=== PATIENT | female | born 1950 | race Caucasian/White ===

== ENCOUNTER 2019-08-18 07:56 | Outpatient (CLI) | payer MEDICARE, OTHER, SELFPAY ==
--- NOTE | 2019-08-18 08:06 | US_ITS ---
WS: [id number] THYROID ULTRASOUND REASON FOR EXAM: GOITER, NONTOXIC MULTINODULAR TECHNIQUE: Grayscale and Doppler ultrasound examination of the thyroid gland. FINDINGS: RIGHT: Right thyroid gland measures 5.0 cm x 1.5 cm x 1.6 cm. Right thyroid volume equals 6.4 ccm3. Within t he mid right lobe is a cystic measures 9.29 cm. There is a complex adenoma seen measures 1.21 x 5.73 cm. This is noted in the right lobe. In the righ t lateral lobe is a lesion measured 9.06 mm this is appears to be a well encapsulated adenoma. LEFT: Left thyroid gland measures 4.2 cm x 1.1 cm x 1.3 cm. Left thyroid volume equals 3.1 ccm3. Multiple c yst in the left lobe are seen. Largest measured 0.37 x 0.19 x 0.33 cm. Thyroid isthmus: 0.3 mm. US/US thyroid [id number] IMPRESSION: The right lobe shows multiple prominent cyst in the region no 1 cm in size as w ell as adenomas and which are well encapsulated. The left lobe shows a benign cyst all small in size. No evidence of malignant changes identified. We recommend follow-up study made in the right lobe and 6 months.
== END 2019-08-18 07:57 | disposition home or self-care (01) ==
LOC: US 08:02
PROVIDERS: Family Provider Internal Medicine; PCP Internal Medicine; Visit Provider Internal Medicine
DX: E04.2 Nontoxic multinodular goiter (principal)
CPT/HCPCS: 76536

== ENCOUNTER 2019-09-16 10:50 | Outpatient (CLI) | payer MEDICARE, OTHER, SELFPAY ==
--- NOTE | 2019-09-16 11:06 | MM_ITS ---
WS: [id number] BILATERAL DIGITAL SCREENING MAMMOGRAPHY WITH CAD CLINICAL INFORMATION: SCREENING HISTORY: Screening mammogram. No current complaints. COMPARISON: July 29, 2018, October 31, 2017, June 18, 2017 TECHNIQUE: Bilateral CC and MLO views. FINDINGS: The breasts are composed of heterogeneous fibroglandular density tissue, which can limit the detectio n of small underlying mass lesions. No suspicious mass, asymmetry, calcifications, or architectural d istortion. No evidence of malignancy. MM/[id number] IMPRESSION: BI-RADS: 1-Negative FOLLOW UP: 1 Year Follow-up Recommend return to annual screening mammography.
== END 2019-09-16 10:51 | disposition home or self-care (01) ==
LOC: RADSHAW 10:54
PROVIDERS: Family Provider Internal Medicine; PCP Internal Medicine; Visit Provider Internal Medicine
DX: Z12.31 Encounter for screening mammogram for malignant neoplasm of breast (principal)
CPT/HCPCS: 77067

== ENCOUNTER → 2019-10-20 08:39 | Outpatient (BNVA) | payer MEDICARE, OTHER, SELFPAY | PROVIDERS: Family Provider Internal Medicine; PCP Internal Medicine; Visit Provider Specialist | DX: G43.119 Migraine with aura, intractable, without status migrainosus (principal) | CPT/HCPCS: 99213 ==

== ENCOUNTER 2019-11-01 12:57 | Outpatient (CLI) | payer MEDICARE, OTHER, SELFPAY ==
--- NOTE | 2019-11-01 13:02 | MR_ITS ---
WS: [id number] MRA ANGIOGRAPHY [place] HISTORY: ANEURYSM COMPARISON: 02/17/2018 and 12/10/2017 TECHNIQUE: 3-D MR angiography is performed of the [place]. All images are reviewed including source images. Distal vertebral and basilar arteries are intact with no significant stenosis or plaque. Posterior ce rebral arteries are normal course and caliber. Posterior communicating arteries are both patent. Unchanged aneurysm from the LEFT cavernous portion of the ICA. Aneurysm extends laterally and superio rly from the distal ICA measuring 5 mm. Stable over multiple prior years. No new aneurysm. RIGHT intracranial carotid artery is normal. Middle cerebral and anterior cerebral arteries are brock l caliber with no additional aneurysms. No aneurysms along the anterior or posterior communicating ar teries. MR/MR angio head wo con [id number] IMPRESSION: 1. 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 2. No additional aneurysms or occlusions.
--- NOTE | 2019-11-01 13:02 | MR_ITS ---
WS: [id number] MRI BRAIN WITHOUT CONTRAST HISTORY: ANEURYSM COMPARISON: 02/17/2015 TECHNIQUE: Diffusion imaging, multiplanar T1, T2 and FLAIR imaging obtained. No evidence for acute infarct or hemorrhage. Stallworth-white matter differentiation is normal. Very mild atrophy and mild chronic microvascular ischemic disease. No evidence for acute hemorrhage. Ventricles and extra-axial spaces are normal. No inferior displacement of cerebellar tonsils. The sella turcica and pituitary gland are unremarkabl e. Posterior fossa is also unremarkable. No signal abnormality within the dural venous sinuses. Patient has a known distal LEFT ICA aneurysm w hich is better visualized on the angiogram portion of this examination. Paranasal sinuses: Clear. Mastoid air cells: Normal. Calvarium and scalp: Intact. MR/MR head wo con* [id number] IMPRESSION: 1. No acute intracranial hemorrhage or edema. 2. Mild atrophy and minimal chronic microvascular ischemic disease.
== END 2019-11-01 12:58 | disposition home or self-care (01) ==
LOC: RADWPI 13:00
PROVIDERS: Family Provider Internal Medicine; PCP Internal Medicine; Visit Provider Specialist
DX: I67.1 Cerebral aneurysm, nonruptured (principal)
CPT/HCPCS: 70544; 70551

== ENCOUNTER → 2019-11-02 07:50 | Outpatient (BNVA) | payer MEDICARE, OTHER, SELFPAY | PROVIDERS: Family Provider Internal Medicine; PCP Internal Medicine; Visit Provider Specialist | DX: G43.119 Migraine with aura, intractable, without status migrainosus (principal); R29.90 Unspecified symptoms and signs involving the nervous system; R47.01 Aphasia | CPT/HCPCS: 95816 ==

== ENCOUNTER 2020-03-03 07:58 | Outpatient (CLI) | payer MEDICARE, OTHER, SELFPAY ==
--- NOTE | 2020-03-03 08:11 | US_ITS ---
WS: [id number] ULTRASOUND THYROID TECHNIQUE: Ultrasound of the thyroid. CLINICAL INFORMATION: GOITER,NONTOXIC MULTINODULAR COMPARISON: August 18, 2019 FINDINGS: Thyroid: Again seen is slightly heterogeneous thyroid echotexture with multiple hypoechoic and comple x cystic nodules mainly subcentimeter in size. Right thyroid lobe: 4.0 cm x 1.4 cm x 1.6 cm Complex cystic lesion right thyroid measuring 1.4 1.0 x 1.0 cm unchanged from previous. Additional hy poechoic complex lesion measuring 1.2 x 0.4 x 0.8 cm in the inferior thyroid unchanged. Additional smaller subcentimeter cystic and complex cystic lesions compatible with small cysts and co lloid cysts. Left thyroid lobe: 3.9 cm x 1.2 cm x 1.4 cm. Several stable tiny subcentimeter cystic lesions compatible with incidental colloid cysts. Isthmus: 0.3 mm. Cervical lymphadenopathy: None. US/US thyroid [id number] IMPRESSION: 1. No significant interval changes since August 18, 2019. 2. Multiple hypoechoic and complex cystic lesions right greater than left thyr oid lobes. 3. Largest complex cystic lesion in the right mid thyroid measures 1.4 x 1.0 x 1.0 cm stable from previous. Recommend 12 month follow-up. 4. Additional subcentimeter hypoechoic lesions in both lobes compatible with s mall cyst and colloid cysts.
== END 2020-03-03 07:59 | disposition home or self-care (01) ==
PROVIDERS: PCP Internal Medicine; Visit Provider Internal Medicine
DX: E04.2 Nontoxic multinodular goiter (principal)
CPT/HCPCS: 76536

== ENCOUNTER → 2020-08-31 08:02 | Outpatient (BNVA) | payer MEDICARE, OTHER, SELFPAY | PROVIDERS: PCP Internal Medicine; Visit Provider Specialist | DX: G43.801 Other migraine, not intractable, with status migrainosus (principal) | CPT/HCPCS: G0463 ==

== ENCOUNTER 2020-09-29 13:25 | Outpatient (CLI) | payer MEDICARE, OTHER, SELFPAY ==
--- NOTE | 2020-09-29 13:29 | MM_ITS ---
WS: [id number] BILATERAL DIGITAL SCREENING MAMMOGRAPHY WITH CAD CLINICAL INFORMATION: SCREENING HISTORY: Screening mammogram. No current complaints. COMPARISON: September 16, 2019, , and TECHNIQUE: Bilateral CC and MLO views. FINDINGS: The breasts are composed of heterogeneous fibroglandular density tissue, which can limit the detectio n of small underlying mass lesions. No suspicious mass, asymmetry, calcifications, or architectural d istortion. No evidence of malignancy. Vascular calcification. MM/[place] [id number] IMPRESSION: BI-RADS: 2-Benign FOLLOW UP: 1 Year Follow-up Recommend return to annual screening mammography.
== END 2020-09-29 13:26 | disposition home or self-care (01) ==
LOC: RADSHAW 13:28
PROVIDERS: PCP Internal Medicine; Visit Provider Internal Medicine
DX: Z12.31 Encounter for screening mammogram for malignant neoplasm of breast (principal)
CPT/HCPCS: 77067

== ENCOUNTER 2021-07-11 07:56 | Outpatient (CLI) | payer MEDICARE, OTHER, SELFPAY ==
--- NOTE | 2021-07-11 08:11 | MM_ITS ---
WS: [id number] BILATERAL DIGITAL DIAGNOSTIC MAMMOGRAM MAMMOGRAPHY WITH CAD CLINICAL INFORMATION: LT BREAST PAIN HISTORY: Left breast pain. Left lateral breast. History of cyst. COMPARISON: Multiple prior examinations including September 29, 2020, September 16, 2019, July 29, 2018, M ay 2017, . TECHNIQUE: Bilateral CC, MLO, and ML views. FINDINGS: Scattered fibroglandular densities bilaterally. Small ovoid 6 mm focal asymmetric density outer left breast is similar in appearance to 2018. This is more conspicuous compared to 2019 and 2020. This per sists on spot compression views. A few tiny associated punctate calcifications are stable since 2017. Ultrasound is pending. Right breast is unchanged and unremarkable. Vascular calcification. ULTRASOUND BREAST LEFT TECHNIQUE: Ultrasound left breast focused area of concern. CLINICAL INFORMATION: LT BREAST PAIN COMPARISON: Prior ultrasounds and July 03, 2017. FINDINGS: Ultrasound left breast at the 3:00 position 1 cm from the nipple. There is an incidental anechoic sim ple appearing breast cyst with through transmission measuring 2.2 x 2.1 x 4.6 mm. This has a benign a ppearance and corresponds to the area of patient's pain. This is similar in appearance to the ultraso und October 2017 and June 2017 and likely represents the same lesion. No suspicious findings. No lesio ns to target for biopsy. MM/[id number] IMPRESSION: BI-RADS: 2-Benign FOLLOW UP: 1 Year Follow-up Recommend return to annual screening mammography.
== END 2021-07-11 07:57 | disposition home or self-care (01) ==
LOC: RADSHAW 08:04
PROVIDERS: PCP Internal Medicine; Visit Provider Internal Medicine
DX: N64.4 Mastodynia (principal)
CPT/HCPCS: 76642; 77066

== ENCOUNTER → 2021-10-26 10:16 | Outpatient (BNVA) | payer MEDICARE, OTHER, SELFPAY | PROVIDERS: PCP Internal Medicine; Visit Provider Specialist | DX: G43.119 Migraine with aura, intractable, without status migrainosus (principal); I67.1 Cerebral aneurysm, nonruptured | CPT/HCPCS: 99213; 99214 ==

== ENCOUNTER 2021-11-05 07:24 | Outpatient (CLI) | payer MEDICARE, OTHER, SELFPAY ==
--- NOTE | 2021-11-05 07:38 | USCV_ITS ---
Eliane Bone Age: 71 Gender: F : 1950 Exam Date: 11/05/2021 07:44 Ordering Phys: Margret Cain MD Technologist: Cinda Brown Exam Location: [facility] [place] Indication: Aortic stenosis BP: 117 / 62 HR: 63 Rhythm: Sinus Technical Quality: Adequate MEASUREMENTS (Male / Female) Normal Values 2D ECHO LV Diastolic Diameter PLAX 4.8 cm 4.2 - 5.9 / 3.9 - 5.3 cm LV Systolic Diameter PLAX 3.3 cm IVS Diastolic Thickness 0.9 cm 0.6 - 1.0 / 0.6 - 0.9 cm IVS Systolic Thickness 1.2 cm LVPW Diastolic Thickness 0.9 cm 0.6 - 1.0 / 0.6 - 0.9 cm LVPW Systolic Thickness 1.3 cm RV Chamber Size 2.5 cm LVOT Diameter 2.0 cm LV Ejection Fraction 2D Teich 57.2 % LV Ejection Fraction MOD 2C 55.2 % LV Ejection Fraction 2C AL 57.4 % LA Diameter 1.8 cm LA Width 2.4 cm LA Height 3.5 cm RA Width 2.8 cm RA Height 3.7 cm Aorta at Sinotubular Diameter 2.3 cm IVC Diameter 1.5 cm M-MODE Aortic Annulus Diameter 3.0 cm LA Ao Ratio MM 0.6 MV E Point Septal Separation 0.5 cm DOPPLER AV Peak Velocity 108.0 cm/s LVOT Peak Velocity 97.0 cm/s AV Area Cont Eq vti 2.9 cm squared AV Area Cont Eq pk 2.8 cm squared MV Area PHT 5.0 cm squared Mitral E to A Ratio 1.2 MV E' Velocity 44.0 cm/s Mitral E to MV E' Ratio 6.6 Mitral E to LV E' Lateral Ratio 5.3 Mitral E to LV E' Septal Ratio 9.0 TR Peak Velocity 254.0 cm/s TR Peak Gradient 25.8 mmHg TV Peak E Velocity 39.0 cm/s RV Acceleration Time 0.1 s RV Ejection Time 0.4 s RV AcT/ET 0.3 FINDINGS Left Ventricle Normal left ventricular size. LV systolic function is normal with EF of 50-55%. No regional wall motion abnormalities. Right Ventricle The right ventricle is normal in size and function. Right Atrium The right atrium is normal in size. Left Atrium The left atrium is normal in size. Mitral Valve Structurally normal mitral valve without significant stenosis or prolapse. There is trace mitral regurgitation. Aortic Valve Structurally normal aortic valve without significant sclerosis or stenosis. There is mild aortic regurgitation. Tricuspid Valve Structurally normal tricuspid valve without significant stenosis . Trace tricuspid regurgitation. Insufficient TR jet to calculate RVSP Pulmonic Valve Structurally normal pulmonic valve without significant stenosis. There is no pulmonic regurgitation. Pericardium Normal pericardium without effusion. Aorta Normal ascending aorta dimension. CONCLUSIONS LV systolic function is normal with EF of 50-55% Trace mitral regurgitation Mild aortic regurgitation Trace tricuspid regurgitation No comparison studies are available Cortez Torres MD (Electronically Signed) Final Date: 10 Nov 2021 21:07 S
== END 2021-11-05 07:25 | disposition home or self-care (01) ==
LOC: RAD 07:25
PROVIDERS: PCP Internal Medicine; Visit Provider Internal Medicine
DX: I35.0 Nonrheumatic aortic (valve) stenosis (principal)
CPT/HCPCS: 93306

== ENCOUNTER 2022-03-19 07:49 | Outpatient (CLI) | payer MEDICARE, OTHER, SELFPAY ==
--- NOTE | 2022-03-19 07:59 | US_ITS ---
WS: [id number] ULTRASOUND PELVIS TECHNIQUE: Transabdominal. CLINICAL INFORMATION: PROLAPSE OF VAGINAL GAUTHIER : No. COMPARISON: Ultrasound pelvis 9 FINDINGS: Heterogeneous uterine echotexture. Orientation: Anteverted. Size: 7.1 cm x 3.9 cm x 3.3 cm Masses: None. Cervix: Incidental nabothian cysts. Endometrium: Normal. Endometrium thickness: 2.7 mm Adnexa: LEFT ovary not visualized. Prominent vessels in the LEFT adnexa can be seen with pelvic conge stion syndrome in the appropriate clinical setting. This is unchanged since 2012 Right ovary size: 2.3 cm x 1.8 cm x 2.4 cm. Right ovary volume: 5.0 ccm3 Free fluid: None. Other findings: None. US/US pelvic complete* [id number] IMPRESSION: 1. Heterogeneous uterine echotexture with normal endometrium measuring 2.7 mm. 2. Incidental nabothian cysts in the cervix. 3. RIGHT ovary is normal appearance. LEFT ovary not visualized. 4. Prominent vessels in the LEFT adnexa can be seen with pelvic congestion syn drome in the appropriate clinical setting unchanged since 2012 5. No free fluid in the cul-de-sac.
== END 2022-03-19 07:50 | disposition home or self-care (01) ==
PROVIDERS: PCP Internal Medicine; Visit Provider Obstetrics & Gynecology
DX: N81.10 Cystocele, unspecified (principal); N88.8 Other specified noninflammatory disorders of cervix uteri
CPT/HCPCS: 76856

== ENCOUNTER 2022-09-02 07:58 | Outpatient (CLI) | payer MEDICARE, OTHER, SELFPAY ==
--- NOTE | 2022-09-02 08:06 | MM_ITS ---
WS: [id number] BILATERAL 3D TOMOSYNTHESIS DIGITAL SCREENING MAMMOGRAPHY WITH CAD CLINICAL INFORMATION: SCREENING HISTORY: Screening mammogram. No current complaints. COMPARISON: July 11, 2021 and September 29, 2020 TECHNIQUE: Bilateral CC and MLO views. FINDINGS: Scattered fibroglandular densities bilaterally. No suspicious focal mass, asymmetry, calcifications, or architectural distortion. No evidence of malignancy. Vascular calcification. A few clustered punct ate calcifications outer LEFT breast unchanged. MM/[place] [id number] IMPRESSION: BI-RADS: 2-Benign FOLLOW UP: 1 Year Follow-up Recommend return to annual screening mammography.
== END 2022-09-02 07:59 | disposition home or self-care (01) ==
LOC: RAD 08:03
PROVIDERS: PCP Internal Medicine; Visit Provider Internal Medicine
DX: Z12.31 Encounter for screening mammogram for malignant neoplasm of breast (principal)
CPT/HCPCS: 77063; 77067

== ENCOUNTER 2023-03-18 07:55 | Outpatient (CLI) | payer MEDICARE, OTHER, SELFPAY ==
--- NOTE | 2023-03-18 08:07 | MR_ITS ---
WS: [id number] MRA ANGIOGRAPHY [place] HISTORY: ANEURYSM COMPARISON: 11/01/2019, 12/10/2017 and 11/15/2013 TECHNIQUE: 3-D MR angiography is performed of the [place]. All images are reviewed including source images. Distal vertebral and basilar arteries are intact with no significant stenosis or plaque. Posterior ce rebral arteries are normal course and caliber. Posterior communicating arteries are both patent. Long-term stability 6 mm aneurysm from the distal LEFT intracranial internal carotid artery through t he cavernous sinus. Aneurysm extends lateral from the carotid artery. There is no evidence for thromb osis or acute hemorrhage. No new or additional aneurysms are identified. There is no significant amount of plaque and no stenos is within the middle cerebral or anterior cerebral arteries. Mildly hypoplastic RIGHT A1 segment. IMPRESSION: 1. Long-term stability 6 mm aneurysm from the distal LEFT ICA in the cavernous sinus. No evidence for recent hemorrhage or increase in size. 2. No additional aneurysms and no significant atherosclerotic disease or stenosis within the [place].
--- NOTE | 2023-03-18 08:07 | MR_ITS ---
WS: [id number] MRI HEAD WITHOUT CONTRAST TECHNIQUE: Sagittal T1, T2 axial, T2 axial FLAIR, axial and coronal T1 images, axial susceptibility w eighted imaging, axial diffusion weighted images, and coronal T2 images were obtained. CLINICAL INFORMATION: MIGRAINE HEADACHE/ANEURYSM COMPARISON: MRI 11/01/2019 FINDINGS: No evidence restricted diffusion to suggest acute ischemia. Ventricular system and basal cisterns are patent. Minimal small vessel changes. Mild parenchymal volume loss. Findings are similar to previous . Normal posterior fossa. Normal vascular flow voids at the skull base. No extra-axial fluid collecti ons. No evidence of mass or mass effect. Mild mucosal thickening in the paranasal sinuses. Minimal mu cosal thickening in the mastoid air cells. No hemosiderin on the susceptibility weighted images. Incidental perivascular spaces in the basal spike glia. Normal optic chiasm and pituitary infundibulum. Normal cavernous sinuses and Meckel's cave. Temporal lobes and hippocampal formations are normal in appearance. IMPRESSION: 1. No significant changes since 2019 2. No restricted diffusion to suggest acute ischemia. 3. Minimal small vessel changes with mild parenchymal volume loss is stable. 4. Mild mucosal thickening in the paranasal sinuses and mastoid air cells. 5. No hemosiderin on susceptibility-weighted images. 6. No new suspicious findings. 7. See MRA report for known LEFT cavernous carotid aneurysm discussion.
== END 2023-03-18 07:56 | disposition home or self-care (01) ==
LOC: RAD 07:59
PROVIDERS: PCP Internal Medicine; Visit Provider Internal Medicine
DX: I72.9 Aneurysm of unspecified site (principal); G43.909 Migraine, unspecified, not intractable, without status migrainosus
CPT/HCPCS: 70544; 70551

== ENCOUNTER → 2023-03-21 08:29 | Outpatient (BNVA) | payer MEDICARE, OTHER, SELFPAY | PROVIDERS: PCP Internal Medicine; Visit Provider Nurse Practitioner Family | DX: L57.0 Actinic keratosis (principal); L82.1 Other seborrheic keratosis; L82.0 Inflamed seborrheic keratosis; L87.8 Other transepidermal elimination disorders; L81.4 Other melanin hyperpigmentation | CPT/HCPCS: 17000; 17110; 99213 ==

== ENCOUNTER → 2023-07-02 11:20 | Outpatient (BNVA) | payer MEDICARE, OTHER, SELFPAY | PROVIDERS: PCP Internal Medicine; Visit Provider Dermatology | DX: D48.5 Neoplasm of uncertain behavior of skin (principal); L82.0 Inflamed seborrheic keratosis; L81.4 Other melanin hyperpigmentation; D22.5 Melanocytic nevi of trunk | CPT/HCPCS: 11102; 17110; 99213 ==

== ENCOUNTER 2023-10-23 09:18 | Outpatient (CLI) | payer MEDICARE, OTHER, SELFPAY ==
--- NOTE | 2023-10-23 09:25 | MM_ITS ---
WS: [id number] BILATERAL 3D TOMOSYNTHESIS DIGITAL SCREENING MAMMOGRAPHY WITH CAD CLINICAL INFORMATION: SCREENING HISTORY: Screening mammogram. No current complaints. COMPARISON: 09/02/2022, 07/11/2021 and multiple prior examinations dating back to 2018. TECHNIQUE: Bilateral CC and MLO views. FINDINGS: Scattered fibroglandular densities bilaterally. Partially obscured ovoid lesion upper outer quadrant LEFT breast posterior depth more prominent compared to the prior examination measuring 10 mm. Recomme nd LEFT breast diagnostic mammography with spot magnification views and ultrasound in further evaluat ion. A cyst was demonstrated in this area previously in 2021 but appears more prominent today. A few associated punctate clustered and vascular calcifications in this area. RIGHT breast is unchanged. Vascular calcifications RIGHT breast. No other suspicious findings. IMPRESSION: MM/[place] [id number] BI-RADS: 0-Incomplete: Need additional imaging evaluation FOLLOW UP: Need Additional Imaging Recommend LEFT breast diagnostic mammography with spot magnification views and ultrasound described above.
== END 2023-10-23 09:19 | disposition home or self-care (01) ==
LOC: RAD 09:18
PROVIDERS: PCP Internal Medicine; Visit Provider Internal Medicine
DX: Z12.31 Encounter for screening mammogram for malignant neoplasm of breast (principal); R92.323 Mammographic fibroglandular density, bilateral breasts; N64.89 Other specified disorders of breast
CPT/HCPCS: 77063; 77067

== ENCOUNTER 2023-10-30 11:29 | Outpatient (CLI) | payer MEDICARE, OTHER, SELFPAY ==
--- NOTE | 2023-10-30 11:36 | MM_ITS ---
WS: [id number] LEFT 3D TOMOSYNTHESIS DIGITAL MAMMOGRAPHY WITH CAD CLINICAL INFORMATION: ABNORMAL MAMMOGRAM HISTORY: Additional views COMPARISON: 2021 and 2022 TECHNIQUE: 3 views of the left breast were obtained. FINDINGS: Scattered fibroglandular densities of the left breast. Area of nodularity upper outer quadrant partia lly compresses on spot compression views but persists. Similar-appearing punctate loosely clustered c alcifications again seen. These appear slightly progressed compared to 202. Vascular calcifications. Ultrasound is pending. ULTRASOUND BREAST LEFT TECHNIQUE: Ultrasound left breast focused area of concern. CLINICAL INFORMATION: ABNORMAL MAMMOGRAM COMPARISON: 2021 FINDINGS: Ultrasound upper outer quadrant LEFT breast. Hypoechoic taller than wide lesion in the area of concern LEFT breast 3 o'clock position 3 cm from th e nipple measuring 1.3 x 1.1 x 0.9 cm. This corresponds to the nodularity seen on the mammogram. Asso ciated surrounding ductal ectasia. This lesion may be partially intraductal. Lesion appears complex w ith a semisolid appearance and is indeterminate. Recommend further evaluation with ultrasound-guided biopsy. Findings discussed with patient at time of ultrasound. Ultrasound LEFT axilla performed. A few prominent low suspicion axillary lymph nodes with preserved f atty avni and without significant cortical thickening. Largest echogenic lymph node measures 1.4 x 0. 9 x 1.0 cm which could be targeted for biopsy. MM/[id number] IMPRESSION: BI-RADS: 4-Suspicious Finding-Biopsy Should Be Considered FOLLOW UP: US Guided Biopsy Recommended Recommend ultrasound-guided biopsy of the complex LEFT breast lesion. Also, largest LEFT axillary lymph node could also be targeted at that time for biopsy.
== END 2023-10-30 11:30 | disposition home or self-care (01) ==
LOC: RAD 11:29
PROVIDERS: PCP Internal Medicine; Visit Provider Internal Medicine
DX: R92.8 Other abnormal and inconclusive findings on diagnostic imaging of breast (principal)
CPT/HCPCS: 76642; 77061; G0279

== ENCOUNTER 2023-11-05 11:54 | Outpatient (CLI) | payer MEDICARE, OTHER, SELFPAY ==
--- NOTE | 2023-11-05 12:02 | US_ITS ---
WS: [id number] ULTRASOUND-GUIDED LEFT BREAST BIOPSY CLINICAL INFORMATION: L BREAST ABNORMAL MAMMOGRAM COMPARISON: Ultrasound 10/30/2023 FINDINGS: The procedure including risks, benefits, and complications were discussed with the patient who agreed to proceed. Timeout was performed. Using sterile technique patient was prepped and draped in the usu al sterile fashion. After 1% lidocaine utilizing real-time ultrasound guidance 7 14-gauge cores were obtained of the LEFT breast lesion at the 3 o'clock position, 3 cm from the nipple. Subsequently a ti tanium clip was placed in the biopsy cavity. No immediate complications. Pathology demonstrates : 1. Invasive ductal carcinoma, nuclear grade II 2. Maximum tumor focus 0.7 cm 3. Focal background ductal carcinoma in situ, cribriform type 4. No microcalcifications are appreciated. US/[id number] IMPRESSION: 1. Uncomplicated ultrasound-guided LEFT breast biopsy. 2. The pathology demonstrates invasive ductal carcinoma nuclear grade 2 3. Breast cancer prognostic profile pending. Please see pathology report for p rognostic profile results. 4. Titanium clip was placed in the biopsy cavity. BI-RADS: 6-Known Biopsy-Proven Malignancy FOLLOW UP: Surgical Biopsy Recommended RECOMMEND BREAST SURGERY CONSULTATION FOR RESECTION.
[2023-11-10 13:28] LABS: Breast Profile ER,PR,HER2,Ki-6 See Report
== END 2023-11-05 11:55 | disposition home or self-care (01) ==
LOC: RAD 11:54
PROVIDERS: PCP Internal Medicine; Visit Provider Internal Medicine
DX: R92.8 Other abnormal and inconclusive findings on diagnostic imaging of breast (principal); D05.12 Intraductal carcinoma in situ of left breast
CPT/HCPCS: 19083; 88305; 88361; 88374

== ENCOUNTER → 2023-11-18 11:25 | Outpatient (BNVA) | payer MEDICARE, OTHER, SELFPAY | PROVIDERS: PCP Internal Medicine; Visit Provider Specialist | DX: R29.90 Unspecified symptoms and signs involving the nervous system (principal); G43.119 Migraine with aura, intractable, without status migrainosus; I67.1 Cerebral aneurysm, nonruptured | CPT/HCPCS: 99212 ==

== ENCOUNTER → 2023-11-27 13:39 | Outpatient (BNVA) | payer MEDICARE, OTHER, SELFPAY | PROVIDERS: PCP Internal Medicine; Visit Provider Nurse Practitioner Family | DX: D48.5 Neoplasm of uncertain behavior of skin (principal); L57.0 Actinic keratosis; B07.8 Other viral warts; L81.4 Other melanin hyperpigmentation; D22.5 Melanocytic nevi of trunk | CPT/HCPCS: 11102; 17000; 17110; 99213 ==

== ENCOUNTER 2023-12-26 09:11 | Oncology outpatient (recurring) (ONCR) | payer MEDICARE, OTHER, SELFPAY ==
--- NOTE | 2023-12-22 09:03 | N.ONRAD NP_ITS ---
Radiation Oncology New Patient Visit Patient: Eliane Bone MR#: [id number] : 9Age: 73 Sex: Female Dictated by: Dr. Nalini Pabon Date of Service: 12/18/2023 Referring Physician(s) : Saurabh Sofia M.D. Diagnosis: Infiltrating ductal carcinoma of upper-outer quadrant of left breast in female C50.412 Radiotherapy to date: Summary > No prior radiation therapy. Chief Complaint / History of Present Illness: Patient is a 73-year-old lady who has been recently diagnosed with a grade 2 ER/SD positive H ER 21+ infiltrating ductal carcinoma of the left breast in the upper outer quadrant. She initially had mammograms in September which then led to an ultrasound and subsequent biopsy. She did have a background DCIS which was cribriform type. She has had bilateral MRIs and no other abnormalities were noted. Margins were negative and 2 nodes sampled were also negative. She has been on hormone replacement for 30+ years. Her Oncotype is returned as low and she is seen today in consultation to discuss the radiation portion of her treatment. Current Medications: Last Reconciled 12/05/23 by Betty Peralta MA alprazolam 0.25 mg PO DAILY, amitriptyline 10 mg PO DAILY, clonazepam 0.25 mg PO DAILY PRN [hormone replacement as directed], ketoconazole 2% 1 applic topical BID Allergies: Sulfa (Sulfonamide Antibiotics) Medical History: No previous radiation therapy. Breast cancer, Postconcussion syndrome, Brain aneurysm Surgical History: History of lumpectomy of left breast (11/25/23), Left breast lumpectomy with axillary sentinel lymph node biopsy, History of hysterectomy with bilateral oophorectomy (2022), History of tubal ligation, History of tonsillectomy Family History: Other: Hypertension, Stroke Social History: Smoking and tobacco/nicotine status: never used tobacco/nicotine Current Complaints / Review of Systems: . Vital Signs: Performed on 12/18/2023 1:17 PM BMI - 24.162 kg/m2 (high), Height - 63 in, Weight - 136.4 lbs, Temperature - 97.3 f, Pulse - 65 /min, Respiration - 16 /min, O2 Sat - 98 %, Pain - 0, Fatigue - 0 and BP - 104/ 57 mm(hg)(/low). Physical Exam: General: Patient is in no apparent distress and accompanied today by her HEENT: Normocephalic atraumatic. Pupils are equal, sclera clear, extraocular muscles intact Pulmonary: Respiratory rate is regular nonlabored Cardiovascular: Regular rate and rhythm Breast exam: The left breast has well-healing incisions in the axillary area in the upper outer quadrant. Extremities: No lymphedema or edema noted in upper or lower extremities Abdomen: Patient is thin with minimal adipose tissue Neurological: Patient is alert and oriented x 3. Gait and speech within normal limits Psych: Affect is appropriate for current situation Performance Status: 100 Pathology: Lab: Imaging: See HPI Impression: Stage Ia infiltrating ductal carcinoma of the left breast Plan: I reviewed with the patient the previous history. We talked about the radiation and breast cancer. We reviewed the simulation process. We discussed the risks and side effects both acute and long-term. At this point she verbalized understanding. She is at this time trying to taper down her Premarin which she has been on for nearly 30 years. She at this point has pretty much decided she will not be taking any of the medications normally given after we finished the radiation. At this point she will return early next week to begin simulation and start her treatments. Plan for a 3-week course of treatment so that we can have her treatments finished by the time she goes on her trip the first week in January. Signed by: 12/22/2023 9:02:24 AM <<Signature on File>> Time spent with patient: 45 minutes CPT Code: CPT Code:
--- NOTE | 2023-12-24 13:48 | ONCRAD TMN_ITS ---
Radiation Oncology Weekly Treatment Management Patient: Lizandro Escalante MR#: [id number] : 1950> Attending Physician: Dr. Nalini Pabon Date of Service: 12/24/2023 Referring Physician(s) : Saurabh Sofia M.D. Diagnosis: C50.412 - Malignant neoplasm of upper-outer quadrant of left female breast, Diagnosed 12/18/2023 (Active) Radiotherapy to date: Course: Breast 2023, Treatment Site: L Breast 2023, Ref. ID: CTV, Energy: 6X, Dose/Fx (cGy): 266, #Fx: , Dose Correction (cGy): 0, Total Dose Delivered (cGy): 266, Start Date: 12/24/2023, Elapsed Days: 0 Reason for visit: The patient is being seen today as part of their regularly scheduled weekly on treatment visits to assess for acute toxicities from radiotherapy. Review of Systems: Patient had questions today about vacation coverage. We do have another [facility]'s physician covering for a week and a half of her treatment. She also had questions and has been doing research on the HRT. She has been on her HRT for nearly 30 years. She had her hysterectomy 2 years ago. I do think we could switch her to the lowest dose of Premarin and get her off the progesterone. She discussed this with her son who is an ER physician. Both he and I agree that she should make her decision on what she wants to do. She is fully aware of the fact that HRT can increase the risk of additional breast cancer but she also understands that is not 100%. She is now trying to balance the potential quality of life if she should go off of her Premarin versus the increased risk. Will continue discussions as she goes through treatment and when she comes back for her 1 month follow-up. Vital Signs: Physical Exam: No change on exam Imaging: Radiation therapy imaging related to accurate target localization (i.e. KV, MV and CBCT) was reviewed. Appropriate changes, if any, were made to ensure treatment accuracy. Plan: Will continue with treatments as planned Signed by: Dr. Nalini Pabno 12/24/2023 1:45:44 PM
== END 2023-12-28 23:59 | disposition home or self-care (01) ==
PROVIDERS: PCP Internal Medicine; Visit Provider Radiology Radiation Oncology
DX: Z51.0 Encounter for antineoplastic radiation therapy (principal); C50.412 Malignant neoplasm of upper-outer quadrant of left female breast
CPT/HCPCS: 17110; 77280; 77295; 77300; 77334; 77387; 77412; 99024; 99205; 99213

== ENCOUNTER → 2024-01-13 09:56 | Outpatient (BNVA) | payer MEDICARE, OTHER, SELFPAY | PROVIDERS: PCP Internal Medicine; Visit Provider Nurse Practitioner Family | DX: D48.5 Neoplasm of uncertain behavior of skin (principal); B07.8 Other viral warts; D22.5 Melanocytic nevi of trunk; L81.4 Other melanin hyperpigmentation | CPT/HCPCS: 11102; 17110; 99213 ==

== ENCOUNTER 2024-01-26 12:29 | Oncology outpatient (recurring) (ONCR) | payer MEDICARE, OTHER, SELFPAY ==
--- NOTE | 2023-12-30 10:00 | ONCRAD TMN_ITS ---
Radiation Oncology Weekly Treatment Management Patient: Eliane Bone MR#: [id number] : 1950 Attending Physician: Dr. Nalini Pabon Date of Service: 12/30/2023 Fractions: 5 out of 16 Referring Physician(s) : Saurabh Sofia M.D. Diagnosis: C50.412 - Malignant neoplasm of upper-outer quadrant of left female breast, Diagnosed 12/18/2023 (Active) Radiotherapy to date: Course: Breast 2023, Treatment Site: L Breast 2023, Ref. ID: CTV, Energy: 6X, Dose/Fx (cGy): 266, #Fx: 16, Dose Correction (cGy): 0, Total Dose Delivered (cGy): 1,330, Start Date: 12/24/2023, Elapsed Days: 6 Reason for visit: The patient is being seen today as part of their regularly scheduled weekly on treatment visits to assess for acute toxicities from radiotherapy. Review of Systems: Patient denies any issues. She is maybe a little more fatigued by the end of the day Vital Signs: Performed on 12/30/2023 9:46 AM BMI - 24.41 kg/m2 (high), Height - 63 in, Weight - 137.8 lbs, Temperature - 96.5 f, Pulse - 63 /min, Respiration - 16 /min, O2 Sat - 99 %, Pain - 0, Fatigue - 2 and BP - 128/ 61 mm(hg)(/low). Physical Exam: Skin is without changes Imaging: Radiation therapy imaging related to accurate target localization (i.e. KV, MV and CBCT) was reviewed. Appropriate changes, if any, were made to ensure treatment accuracy. Plan: Will continue with her treatments as planned Signed by: Dr. Nalini Pabon 12/30/2023 9:59:34 AM
--- NOTE | 2024-01-06 08:42 | ONCRAD TMN_ITS ---
Radiation Oncology Weekly Treatment Management Patient: Lizandro Escalante MR#: [id number] : 1950> Attending Physician: Alvaro Celaya DO/CARYN/CANDELARIO Date of Service: 01/06/2024 Referring Physician(s) : Saurabh Sofia M.D. Diagnosis: C50.412 - Malignant neoplasm of upper-outer quadrant of left female breast, Diagnosed 12/18/2023 (Active) Radiotherapy to date: Course: Breast 2023, Treatment Site: L Breast 2023, Ref. ID: CTV, Energy: 6X, Dose/Fx (cGy): 266, #Fx: , Dose Correction (cGy): 0, Total Dose Delivered (cGy): 2,394, Start Date: 12/24/2023, Elapsed Days: 13 Reason for visit: The patient is being seen today as part of their regularly scheduled weekly on treatment visits to assess for acute toxicities from radiotherapy. Review of Systems: No new abnormalities Vital Signs: Performed on 01/06/2024 8:07 AM BMI - 24.339 kg/m2 (high), Height - 63 in, Weight - 137.4 lbs, Temperature - 96.7 f, Pulse - 62 /min, Respiration - 18 /min, O2 Sat - 99 %, Pain - 0, Fatigue - 1 and BP - 129/ 67 mm(hg). Physical Exam: AAOx3. Skin intact. Mild erythema of LEFT Breast. NO Masses Imaging: Radiation therapy imaging related to accurate target localization (i.e. KV, MV and CBCT) was reviewed. Appropriate changes, if any, were made to ensure treatment accuracy. Plan: Cont XRT Cont Creams as directed Signed by: Alvaro Celaya 01/06/2024 8:40:31 AM
--- NOTE | 2024-01-13 09:55 | ONCRAD TMN_ITS ---
Radiation Oncology Weekly Treatment Management Patient: Lizandro Escalante MR#: [id number] : 1950> Attending Physician: Alvaro Celaya Date of Service: 01/13/2024 Referring Physician(s) : Saurabh Sofia M.D. Diagnosis: C50.412 - Malignant neoplasm of upper-outer quadrant of left female breast, Diagnosed 12/18/2023 (Active) Radiotherapy to date: Course: Breast 2023, Treatment Site: L Breast 2023, Ref. ID: CTV, Energy: 6X, Dose/Fx (cGy): 266, #Fx: , Dose Correction (cGy): 0, Total Dose Delivered (cGy): 3,724, Start Date: 12/24/2023, Elapsed Days: 20 Reason for visit: The patient is being seen today as part of their regularly scheduled weekly on treatment visits to assess for acute toxicities from radiotherapy. Review of Systems: Patient tolerating treatment well. Patient has minimal skin reaction and uses creams daily. Scar with no significant nodularity. Patient is leaning toward not taking hormone therapy. We did advise her to listen to medical oncology options and then make her ultimate decision. Patient completes XRT on . She is to continue to use creams. Vital Signs: Performed on 01/13/2024 9:17 AM BMI - 23.737 kg/m2 (high), Height - 63 in, Weight - 134 lbs, Temperature - 96.4 f, Pulse - 57 /min (low), Respiration - 18 /min, O2 Sat - 99 %, Pain - 0, Fatigue - 0 and BP - 143/ 60 mm(hg)(high/low). Physical Exam: AAOx3. Skin intact with minimal erythema. Imaging: Radiation therapy imaging related to accurate target localization (i.e. KV, MV and CBCT) was reviewed. Appropriate changes, if any, were made to ensure treatment accuracy. Plan: Cont XRT Cont creams See MO after completion to review hormone therapy options ad to make her decision Completes XRT . Signed by: Alvaro Celaya 01/13/2024 9:54:02 AM
--- NOTE | 2024-01-26 13:39 | ONCRAD EPV_ITS ---
Radiation Oncology Established Patient Visit Patient: Lizandro Del Rio (Elle) [id number] : 1950 Age: 73 Sex: Female Dictated by: Dr. Nalini Pabon Date of Service: 01/26/2024 Referring Physician(s) : Saurabh Sofia M.D. Diagnosis: C50.412 - Malignant neoplasm of upper-outer quadrant of left female breast, Diagnosed 12/18/2023 (Active) Radiotherapy to Date: Course: Breast 2023, Treatment Site: L Breast 2023, Ref. ID: CTV, Energy: 6X, Dose/Fx (cGy): 266, #Fx: 16 / 16, Dose Correction (cGy): 0, Total Dose Delivered (cGy): 4,256, Start Date: 12/24/2023, End Date: 01/15/2024, Elapsed Days: 22 Current History and exam: Patient returns today for her 2-week check. She is doing well. She has a good appetite. Her energy level is returning. She did get quite erythematous afterwards and apparently initially started using heat on the area but found that this was not the thing to do. She has subsequently been using ice on the area. On exam today the breast is mildly erythematous but she has developed a rash like erythema that is most significant in the medial upper quadrant. This area is also somewhat pruritic. She says it actually dave a little bit when she gets in the shower. I have suggested to her that at this point she go ahead and use cortisone cream on the area to help with the itching and that over the next week or so this should continue to improve. Plan: I have asked her to call if her skin reaction should not continue to resolve. We be happy to see her back at any time. I will schedule her for her mammogram at 6-month intervals she will be due in March for her first subsequent mammogram. Current Medications: Allergies: Current Complaints / Review of Systems: . Vital Signs: Performed on 01/26/2024 1:10 PM BMI - 24.623 kg/m2 (high), Height - 63 in, Weight - 139 lbs, Temperature - 97.8 f, Pulse - 67 /min, Respiration - 17 /min, O2 Sat - 99 %, Pain - 0, Fatigue - 0 and BP - 149/ 66 mm(hg)(high/). Performance Status: 100 Lab: None pending. Pathology: Primary, c50.412 - malignant neoplasm of upper-outer quadrant of left female breast, Diagnosed 12/18/2023 (active) . Imaging: See HPI Signed by: 01/26/2024 1:38:01 PM <<Signature on File>> Time spent with patient: 20 CPT Code: CPT Code:
== END 2024-01-28 23:59 | disposition home or self-care (01) ==
PROVIDERS: PCP Internal Medicine; Visit Provider Internal Medicine Medical Oncology
DX: C50.412 Malignant neoplasm of upper-outer quadrant of left female breast (principal)
CPT/HCPCS: 77336; 77387; 77412; 99024

== ENCOUNTER 2024-02-25 08:31 | Oncology outpatient (recurring) (ONCR) | payer MEDICARE, OTHER, SELFPAY | END 2024-02-28 23:59 | disposition home or self-care (01) | PROVIDERS: PCP Internal Medicine; Visit Provider Internal Medicine Medical Oncology | DX: C50.412 Malignant neoplasm of upper-outer quadrant of left female breast (principal) | CPT/HCPCS: 99214 ==

== ENCOUNTER 2024-03-04 11:38 | Oncology outpatient (recurring) (ONCR) | payer MEDICARE, OTHER, SELFPAY ==
--- NOTE | 2024-03-04 14:20 | ONCRAD EPV_ITS ---
Radiation Oncology Established Patient Visit Patient: Lizandro Del Rio (Elle) [id number] : 1950> Age: 73> Sex: Female> Dictated by: Dr. Nalini Pabon Date of Service: 03/04/2024 Referring Physician(s) : Saurabh Sofia M.D. Diagnosis: C50.412 - Malignant neoplasm of upper-outer quadrant of left female breast, Diagnosed 12/18/2023 (Active) Radiotherapy to Date: Course: Breast 2023, Treatment Site: L Breast 2023, Ref. ID: CTV, Energy: 6X, Dose/Fx (cGy): 266, #Fx: 16 / 16, Dose Correction (cGy): 0, Total Dose Delivered (cGy): 4,256, Start Date: 12/24/2023, End Date: 01/15/2024, Elapsed Days: 22 Current History: Patient called earlier today and was concerned that she had had some mild swelling in her left breast along with some increased erythema. We asked her to come in today so that she could undergo evaluation. Current Medications: Allergies: Current Complaints / Review of Systems: . Vital Signs: Performed on 03/04/2024 11:34 AM BMI - 24.977 kg/m2 (high), Height - 63 in, Weight - 141 lbs, Temperature - 97.9 f, Pulse - 69 /min, Respiration - 18 /min, O2 Sat - 98 %, Pain - 2, Fatigue - 0 and BP - 119/ 63 mm(hg)(/low). Physical Exam: General: Alert and oriented x 3. No acute distress. Breast: Patient's breast was nontender. The right breast has a mild pink flush to it. It does not appear to be warm to touch. No masses were noted. She does think this swelling has gone down as of this time.: She did play 18 holes of golf yesterday as well as do quite a bit of yard work. 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 . Performance Status: 100 Lab: None pending. Pathology: Primary, c50.412 - malignant neoplasm of upper-outer quadrant of left female breast, Diagnosed 12/18/2023 (active) . Imaging: See HPI Impression: Early stage breast cancer Plan: At this point I showed her some different techniques she can do to try and massage the breast and move any fluid she feels may be present to the midline. I asked her to go ahead and continue to use her normal cream on the area. I suspect she does have some mild bit of fluid retention secondary to all of her activity yesterday. She has had about 3 weeks where she has had less activity and is just now beginning to feel little bit better. Signed by: 03/04/2024 2:18:50 PM <<Signature on File>> Time spent with patient:20 CPT Code: CPT Code:
== END 2024-03-29 23:59 | disposition home or self-care (01) ==
PROVIDERS: PCP Internal Medicine; Visit Provider Radiology Radiation Oncology
DX: C50.412 Malignant neoplasm of upper-outer quadrant of left female breast (principal); R60.0 Localized edema; Z92.3 Personal history of irradiation
CPT/HCPCS: 99024

== ENCOUNTER 2024-05-06 10:34 | Outpatient (RCR) | payer MEDICARE, OTHER, SELFPAY | END 2024-05-29 23:59 | disposition home or self-care (01) | LOC: SPT 10:34 | PROVIDERS: Visit Provider Internal Medicine | DX: I89.0 Lymphedema, not elsewhere classified (principal); C50.919 Malignant neoplasm of unspecified site of unspecified female breast | CPT/HCPCS: 97161 ==

== ENCOUNTER 2024-05-10 13:35 | Outpatient (CLI) | payer MEDICARE, OTHER, SELFPAY ==
--- NOTE | 2024-05-10 13:39 | US_ITS ---
WS: [id number] BILATERAL 3D TOMOSYNTHESIS DIGITAL DIAGNOSTIC MAMMOGRAPHY WITH CAD CLINICAL INFORMATION: breast cancer HISTORY: LEFT breast lumpectomy with radiation COMPARISON: 2023 TECHNIQUE: Bilateral CC, MLO, and ML views. FINDINGS: Scattered fibroglandular densities bilaterally. Postoperative changes lumpectomy LEFT breast with loni gical clips. No mammographic evidence of recurrence. Ultrasound of this area is pending. Otherwise no new suspicious abnormalities. Vascular calcification. Surgical clips LEFT axilla. ULTRASOUND BREAST LEFT TECHNIQUE: Ultrasound left breast focused area of concern. CLINICAL INFORMATION: breast cancer COMPARISON: 11/05/2023 FINDINGS: Ultrasound LEFT breast directed at the lumpectomy cavity. Incidental simple cyst at the 12 o'clock po sition at the site of lumpectomy measuring 5 x 9 mm. Additional incidental cyst or small duct at the 12 o'clock to 1:00 position 1 cm from the nipple measuring 10 x 18 mm. No suspicious cystic or solid lesions. No suspicious lesions to target for biopsy. No evidence of recurrence at the lumpectomy site . US/US breast LT limited* [id number] IMPRESSION: DENSITY: There are scattered areas of fibroglandular density. BI-RADS: 2 - Benign. FOLLOW UP: 1 Year Follow-up Recommend return to annual diagnostic mammography.
--- NOTE | 2024-05-10 14:00 | MM_ITS ---
WS: [id number] BILATERAL 3D TOMOSYNTHESIS DIGITAL DIAGNOSTIC MAMMOGRAPHY WITH CAD CLINICAL INFORMATION: breast cancer HISTORY: LEFT breast lumpectomy with radiation COMPARISON: 2023 TECHNIQUE: Bilateral CC, MLO, and ML views. FINDINGS: Scattered fibroglandular densities bilaterally. Postoperative changes lumpectomy LEFT breast with loni gical clips. No mammographic evidence of recurrence. Ultrasound of this area is pending. Otherwise no new suspicious abnormalities. Vascular calcification. Surgical clips LEFT axilla. ULTRASOUND BREAST LEFT TECHNIQUE: Ultrasound left breast focused area of concern. CLINICAL INFORMATION: breast cancer COMPARISON: 11/05/2023 FINDINGS: Ultrasound LEFT breast directed at the lumpectomy cavity. Incidental simple cyst at the 12 o'clock po sition at the site of lumpectomy measuring 5 x 9 mm. Additional incidental cyst or small duct at the 12 o'clock to 1:00 position 1 cm from the nipple measuring 10 x 18 mm. No suspicious cystic or solid lesions. No suspicious lesions to target for biopsy. No evidence of recurrence at the lumpectomy site . MM/MM diag tomosynthesis [id number] IMPRESSION: DENSITY: There are scattered areas of fibroglandular density. BI-RADS: 2 - Benign. FOLLOW UP: 1 Year Follow-up Recommend return to annual diagnostic mammography.
== END 2024-05-10 13:36 | disposition home or self-care (01) ==
LOC: RAD 13:36
PROVIDERS: PCP Internal Medicine; Visit Provider Radiology Radiation Oncology
DX: C50.412 Malignant neoplasm of upper-outer quadrant of left female breast (principal); Z98.890 Other specified postprocedural states; R92.323 Mammographic fibroglandular density, bilateral breasts; N60.02 Solitary cyst of left breast
CPT/HCPCS: 76642; 77062; G0279

== ENCOUNTER → 2024-05-18 08:00 | Outpatient (BNVA) | payer MEDICARE, OTHER, SELFPAY | PROVIDERS: PCP Internal Medicine; Visit Provider Specialist | DX: R29.90 Unspecified symptoms and signs involving the nervous system (principal); G43.119 Migraine with aura, intractable, without status migrainosus; I67.1 Cerebral aneurysm, nonruptured | CPT/HCPCS: 99212 ==

== ENCOUNTER 2024-06-02 12:57 | Oncology outpatient (recurring) (ONCR) | payer MEDICARE, OTHER, SELFPAY ==
[2024-06-02 13:33] LABS: Basophils % 0.3 %; Eosinophils # 0.3 10^3/uL (0.0-0.8); Eosinophils % 2.9 %; Hematocrit 39.7 % (36-47); Lymphocytes # 1.7 10^3/uL (0.8-4.8); Lymphocytes % 16.9 %; Mean Corpuscular HGB Conc 32.5 g/dL (30-55); Mean Corpuscular Hemoglobin 30.9 pg (27-33); Mean Platelet Volume 8.4 fL (7.4-10.4); Monocytes % 9.9 %; Neutrophils # 6.83 10^3/uL (1.8-7.7); Neutrophils % 69.7 %; Nucleated Red Blood Cells % 0 %; Platelet Count 296 10^3/cmm (157-399); Red Blood Count 4.18 10^6/uL (3.85-5.65); Red Cell Distribution Width 13.5 % (12.1-15.1); White Blood Count 9.79 10^3/uL (3.29-11.43)
[2024-06-02 14:01] LABS: Alanine Aminotransferase 20 U/L (0-33); Albumin Level 4.1 g/dL (3.5-5.2); Alkaline Phosphatase 119 U/L (35-105); Anion Gap 14.3 (5-19); Aspartate Amino Transferase 24 U/L (0-32); Blood Urea Nitrogen 23 mg/dL (8-23); Carbon Dioxide 23 mmol/L (22-29); Chloride 102 mmol/L (98-107); Creatinine Clr Calc Pharmacy 54.1742; Globulin 3.4 g/dL (1.3-4.6); Glucose 92 mg/dL (65-115); Osmolality Calculated 283 mOsm/kg (285-295); Potassium 4.3 mmol/L (3.5-5.1); Sodium 135 mmol/L (136-145); Total Bilirubin 0.2 mg/dL (0.15-1.2); Total Protein 7.5 g/dL (6.6-8.7)
--- NOTE | 2024-06-02 14:48 | ONCRAD EPV_ITS ---
Radiation Oncology Established Patient Visit Patient: Lizandro Del Rio (Elle) [id number] : 1950> Age: 74> Sex: Female> Dictated by: Dr. Nalini Pabon Date of Service: 06/02/2024 Referring Physician(s) : Saurabh Sofia M.D. Diagnosis: C50.412 - Malignant neoplasm of upper-outer quadrant of left female breast, Diagnosed 12/18/2023 (Active) Radiotherapy to Date: Course: Breast 2023, Treatment Site: L Breast 2023, Ref. ID: CTV, Energy: 6X, Dose/Fx (cGy): 266, #Fx: 16 / 16, Dose Correction (cGy): 0, Total Dose Delivered (cGy): 4,256, Start Date: 12/24/2023, End Date: 01/15/2024, Elapsed Days: 22 Current History: Patient is doing well. She has good appetite. She denies any aches or pains. She actually ran 2 miles yesterday. Her mammogram on May 10 was without abnormalities and a 1 year mammogram was recommended. She does continue to have a little bit of lymphedema in the breast tissue. Current Medications: - Last Reconciled 06/02/24 by Betty Peralta MA clonazepam 0.25 mg PO DAILY PRN duloxetine mg PO estradiol 0.01%(0.1mg/gram) vaginal progesterone micronized mg PO Allergies: nsect venom Allergy (Unknown, Verified 06/02/24 13:13) Unknown Sulfa (Sulfonamide Antibiotics) Allergy (Verified 06/02/24 13:13) uknown Current Complaints / Review of Systems: . Vital Signs: Performed on 06/02/2024 1:30 PM BMI - 24.446 kg/m2 (high), Height - 63 in, Weight - 138 lbs, Temperature - 98.7 f, Pulse - 67 /min, Respiration - 17 /min, O2 Sat - 97 %, Pain - 5, Fatigue - 0 and BP - 110/ 61 mm(hg)(/low). Physical Exam: General: Alert and oriented x 3. No acute distress. HEENT: Normocephalic, atraumatic. Extraocular Movements Intact: Pupils Equal, Round, Reactive to Light LUNGS: Respiratory rate is regular nonlabored. HEART: Regular rate and rhythm, Breast: No mass could be appreciated either breast. No axillar adenopathy was noted. The left breast still has slight hyperpigmentation. It is slightly larger than the right. ABDOMEN: Soft, nontender, nondistended without masses or organomegaly. EXTREMITIES: No peripheral edema is identified NEUROLOGIC: Alert and orient x 3. Gait and speech within normal limits Performance Status: 100 Pathology: Primary, c50.412 - malignant neoplasm of upper-outer quadrant of left female breast, Diagnosed 12/18/2023 (active) . Imaging: See HPI Impression: Left-sided breast cancer Plan: This point she is doing well. She has recovered from her treatments. Her mammogram was good. Will schedule her next mammogram in a year from now. She continues to take 200 mg of progesterone daily and 3 times a week she is using vaginal estrogen. This has been able to minimize the toxicity she has had from withdrawal of her estrogen. She is feeling quite well I think she really has minimal risk from this combination of medications. At this point I will get her mammogram scheduled and she will call if any problems should arise in the interim Signed by: 06/02/2024 2:46:28 PM <<Signature on File>> Time spent with patient: 20 CPT Code: CPT Code:
== END 2024-06-29 23:59 | disposition home or self-care (01) ==
PROVIDERS: Internal Medicine Medical Oncology; PCP Internal Medicine; Visit Provider Radiology Radiation Oncology
DX: C50.412 Malignant neoplasm of upper-outer quadrant of left female breast (principal); Z92.3 Personal history of irradiation
CPT/HCPCS: 36415; 80053; 85025; 99213; 99214

== ENCOUNTER 2024-06-21 10:05 | Outpatient (CLI) | payer MEDICARE, OTHER, SELFPAY ==
--- NOTE | 2024-06-21 10:08 | CT_ITS ---
WS: [id number] CT CHEST TECHNIQUE: Contrast enhanced CT of the chest with coronal and sagittal reformatted images. CLINICAL INFORMATION: PULMONARY NODULE COMPARISON: CT 02/04/2024 DLP: 225.[address] scans at [facility] use at least one of these dose optimization techniques: automated e xposure control; mA and/or kV adjustment per patient size (includes targeted exams where dose is matc hed to clinical indication); or iterative reconstruction. FINDINGS: Lungs are well aerated. No acute pulmonary infiltrates. No focal pneumonia or pleural fluid. Subpleur al nodule or scarring in the LEFT upper lobe anteriorly measuring 6 mm appears new from previous. A few tiny subpleural nodules in both upper lobes appear unchanged. Previously described hazy subpleu ral opacity RIGHT lower lobe has resolved and was likely infectious or inflammatory. Hazy opacity RIG HT lower lobe also appears to have resolved. No other suspicious pulmonary parenchymal abnormalities. Normal caliber thoracic aorta. Normal caliber descending thoracic aorta. Proximal main pulmonary tera marisa are normal. A few small thyroid nodules the largest on the RIGHT measuring 6 mm. No mediastinal or hilar lymphadenopathy. No axillary lymphadenopathy. LEFT axillary surgical clips. Surgical clips L EFT breast. Adrenal glands are normal. Partially visualized normal renal parenchymal enhancement. Tin y cyst RIGHT kidney. Mild hepatomegaly. Mild diffuse fatty infiltration of the liver. Incidental hepatic cysts in the part ially visualized liver appear stable. Portal vein and splenic vein are patent. Celiac and SMA are pat ent. Mild hypertrophic changes thoracic spine CT/CT chest w con* [id number] IMPRESSION: 1. Lungs are well aerated. No acute pulmonary infiltrates. 2. Previously described 7 x 5 x 9 mm subpleural nodule with surrounding ground glass opacity RIGHT lower lobe has resolved. This was likely infectious or infl ammatory. 3. Previously described scattered tiny mainly subpleural nodules noted in the upper lobes are unchanged. 4. In addition previously described 8 x 7 mm groundglass hazy opacity RIGHT lo wer lobe has also resolved. 5. New small subpleural nodule or scarring in the LEFT upper lobe anteriorly m easuring 6 mm adjacent to the heart with some slight associated atelectasis is likely inflammatory. This can be followed up in [address] 6. Mild hepatomegaly with diffuse fatty infiltration of the liver.
[2024-06-21] MEDS: iohexol 350 mg/mL 500 mL Btl (per mL) IV (10:48)
== END 2024-06-21 10:06 | disposition home or self-care (01) ==
LOC: RAD 10:06
PROVIDERS: PCP Internal Medicine
DX: R91.8 Other nonspecific abnormal finding of lung field (principal); E04.2 Nontoxic multinodular goiter; N28.1 Cyst of kidney, acquired; Q44.6 Cystic disease of liver
CPT/HCPCS: 71260

== ENCOUNTER → 2024-07-08 13:08 | Outpatient (BNVA) | payer MEDICARE, OTHER, SELFPAY | PROVIDERS: PCP Internal Medicine; Visit Provider Nurse Practitioner Family | DX: L81.4 Other melanin hyperpigmentation (principal); L57.8 Other skin changes due to chronic exposure to nonionizing radiation; L82.0 Inflamed seborrheic keratosis; R20.8 Other disturbances of skin sensation; Z78.9 Other specified health status; L57.0 Actinic keratosis | CPT/HCPCS: 11102; 17000; 17110; 99213 ==

== ENCOUNTER → 2024-11-25 15:41 | Outpatient (BNVA) | payer MEDICARE, OTHER, SELFPAY | PROVIDERS: PCP Internal Medicine; Visit Provider Specialist | DX: R29.90 Unspecified symptoms and signs involving the nervous system (principal); G43.119 Migraine with aura, intractable, without status migrainosus; I67.1 Cerebral aneurysm, nonruptured; G43.711 Chronic migraine without aura, intractable, with status migrainosus | CPT/HCPCS: 99212 ==

== ENCOUNTER → 2024-12-23 13:46 | Outpatient (BNVA) | payer MEDICARE, OTHER, SELFPAY | PROVIDERS: PCP Internal Medicine; Visit Provider Nurse Practitioner Family | DX: B07.8 Other viral warts (principal); L72.0 Epidermal cyst; L81.4 Other melanin hyperpigmentation; L57.8 Other skin changes due to chronic exposure to nonionizing radiation; X32.XXXA Exposure to sunlight, initial encounter; L82.1 Other seborrheic keratosis; L82.0 Inflamed seborrheic keratosis; L29.89 Other pruritus; L53.8 Other specified erythematous conditions; D48.5 Neoplasm of uncertain behavior of skin; L57.0 Actinic keratosis | CPT/HCPCS: 11102; 17000; 17110; 99213 ==

== ENCOUNTER → 2025-01-21 08:09 | Outpatient (BNVA) | payer MEDICARE, OTHER, SELFPAY | PROVIDERS: PCP Internal Medicine; Visit Provider Dermatology | DX: L81.4 Other melanin hyperpigmentation (principal); L57.8 Other skin changes due to chronic exposure to nonionizing radiation; X32.XXXA Exposure to sunlight, initial encounter; L82.1 Other seborrheic keratosis; C44.529 Squamous cell carcinoma of skin of other part of trunk; B07.8 Other viral warts; L08.89 Other specified local infections of the skin and subcutaneous tissue; R20.8 Other disturbances of skin sensation; L53.8 Other specified erythematous conditions | CPT/HCPCS: 17110; 17262; 99213 ==

== ENCOUNTER → 2025-02-15 09:32 | Outpatient (BNVA) | payer MEDICARE, OTHER, SELFPAY | PROVIDERS: PCP Internal Medicine; Visit Provider Nurse Practitioner Family | DX: L57.8 Other skin changes due to chronic exposure to nonionizing radiation (principal); X32.XXXA Exposure to sunlight, initial encounter; L81.4 Other melanin hyperpigmentation; L82.1 Other seborrheic keratosis; Z08 Encounter for follow-up examination after completed treatment for malignant neoplasm; Z85.828 Personal history of other malignant neoplasm of skin; B07.8 Other viral warts; R20.8 Other disturbances of skin sensation; L08.89 Other specified local infections of the skin and subcutaneous tissue; L53.8 Other specified erythematous conditions; L57.0 Actinic keratosis | CPT/HCPCS: 17000; 17110; 99213 ==

== ENCOUNTER 2025-04-28 15:28 | Outpatient (CLI) | payer MEDICARE, OTHER, SELFPAY ==
--- NOTE | 2025-04-28 15:39 | CT_ITS ---
WS: [id number] CT NECK TECHNIQUE: Contrast-enhanced CT of the neck with coronal and sagittal reformatted images. 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 DLP: 141.[address] scans at [facility] use at least one of these dose optimization techniques: automated exposure control; mA and/or kV adjustment per patient size (includes targeted exams where dose is matched to clinical indication); or iterative reconstruction. FINDINGS: Mastoid air cells are well aerated. Mild inflammatory changes in the paranasal sinuses. Small retention cyst in the sphenoid sinus. Parotid glands are normal in appearance. Normal submandibular glands. Tongue base is normal in appearance. Normal posterior nasopharynx and parapharyngeal fat. No evidence of supraglottic or glottic mass. Normal vallecula and piriform sinuses. Normal subglottic airway. No cervical lymphadenopathy Lung apices are well aerated. Known 5 to 6 mm distal LEFT ICA aneurysm partially visualized. Small bilateral thyroid nodules the largest on the RIGHT measuring 8 mm. Moderate spondylitic changes cervical spine. Slight anterolisthesis C3 on C4. Disc space narrowing worse at C4-C6. CT/CT neck w con* [id number] IMPRESSION: 1. Normal salivary glands. 2. No cervical lymphadenopathy. 3. No evidence of supraglottic or glottic mass. Normal subglottic airway. 4. A few small thyroid nodules the largest on the RIGHT measuring 8 mm. 5. No other acute findings.
[2025-04-28 16:14] LABS: Blood Urea Nitrogen 16 mg/dL (8-23)
== END 2025-04-28 15:29 | disposition home or self-care (01) ==
LOC: RAD 15:29
PROVIDERS: Radiology Diagnostic Radiology; PCP Internal Medicine; Visit Provider Otolaryngology
DX: C44.211 Basal cell carcinoma of skin of unspecified ear and external auricular canal (principal); E04.2 Nontoxic multinodular goiter; J34.89 Other specified disorders of nose and nasal sinuses; J34.1 Cyst and mucocele of nose and nasal sinus; M47.812 Spondylosis without myelopathy or radiculopathy, cervical region
CPT/HCPCS: 70491; 82565; 84520

== ENCOUNTER → 2025-05-05 14:21 | Outpatient (BNVA) | payer MEDICARE, OTHER, SELFPAY | PROVIDERS: PCP Internal Medicine; Visit Provider Nurse Practitioner Family | DX: C44.299 Other specified malignant neoplasm of skin of left ear and external auricular canal (principal); L81.4 Other melanin hyperpigmentation; L57.8 Other skin changes due to chronic exposure to nonionizing radiation; D18.01 Hemangioma of skin and subcutaneous tissue; L82.1 Other seborrheic keratosis; Z08 Encounter for follow-up examination after completed treatment for malignant neoplasm; Z85.828 Personal history of other malignant neoplasm of skin; D48.5 Neoplasm of uncertain behavior of skin; L57.0 Actinic keratosis | CPT/HCPCS: 11102; 17000; 99213 ==

== ENCOUNTER 2025-06-14 13:54 | Oncology outpatient (recurring) (ONCR) | payer MEDICARE, OTHER, SELFPAY ==
[2025-06-14 14:10] LABS: Hematocrit 39.7 % (36-47); Hemoglobin 13.20 g/dL (11.27-16.99); Mean Corpuscular HGB Conc 33.2 g/dL (30-55); Mean Corpuscular Hemoglobin 31.8 pg (27-33); Mean Corpuscular Volume 95.7 fl (85-98); Nucleated Red Blood Cells % 0 %; Platelet Count 285 10^3/cmm (157-399); Red Blood Count 4.15 10^6/uL (3.85-5.65); White Blood Count 7.84 10^3/uL (3.29-11.43)
[2025-06-14 14:36] LABS: Alanine Aminotransferase 15 U/L (0-33); Albumin Level 4.3 g/dL (3.5-5.2); Alkaline Phosphatase 125 U/L (35-105); Anion Gap 12.5 (5-19); Aspartate Amino Transferase 22 U/L (0-32); Blood Urea Nitrogen 16 mg/dL (8-23); Calcium 9.4 mg/dL (8.5-10.5); Carbon Dioxide 28 mmol/L (22-29); Chloride 100 mmol/L (98-107); Creatinine Clr Calc Pharmacy 54.5402; Globulin 2.5 g/dL (1.3-4.6); Glucose 95 mg/dL (65-115); Osmolality Calculated 283 mOsm/kg (285-295); Potassium 4.5 mmol/L (3.5-5.1); Sodium 136 mmol/L (136-145); Total Protein 6.8 g/dL (6.6-8.7)
== END 2025-06-29 23:59 | disposition home or self-care (01) ==
PROVIDERS: PCP Internal Medicine; Visit Provider Internal Medicine Medical Oncology
DX: C44.219 Basal cell carcinoma of skin of left ear and external auricular canal (principal); R03.0 Elevated blood-pressure reading, without diagnosis of hypertension; R91.1 Solitary pulmonary nodule; Z85.3 Personal history of malignant neoplasm of breast; Z92.3 Personal history of irradiation
CPT/HCPCS: 80053; 85025; 99213

== ENCOUNTER 2025-06-17 09:32 | Outpatient (CLI) | payer MEDICARE, OTHER, SELFPAY ==
--- NOTE | 2025-06-17 09:42 | MR_ITS ---
WS: [id number] MRI HEAD WITH CONTRAST WITH ATTENTION TO THE INTERNAL AUDITORY CANALS TECHNIQUE: Sagittal T1, T2 axial, T2 axial flair, axial susceptibility weighted imaging, axial diffusion weighted images, and coronal T2 images were obtained. Pre and post T1 axial and post T1 coronal images. ADC and FSPGR images. Post gadolinium images with attention to the internal auditory canals. Axial fiesta imaging. CLINICAL INFORMATION: BILATERAL HEARING LOSS,SENSORINEURAL COMPARISON: 2022 FINDINGS: No evidence of restricted diffusion to suggest acute ischemia. Ventricular system and basilar cisterns are patent. Mild small vessel changes with mild parenchymal volume loss similar to previous. Normal posterior fossa. Normal vascular flow voids at the skull base. No extra-axial fluid collections. Mild mucosal thickening in the ethmoid air cells. Mild mucosal thickening in the mastoid tips. No hemosiderin on susceptibility-weighted images. Proximal 7th and 8th cranial nerves are normal in appearance. No evidence of enhancing IAC or CP angle mass. Normal trigeminal nerve root entry zones. Normal optic chiasm and pituitary infundibulum. No abnormal intracranial enhancement. Normal dural venous sinuses. No other suspicious findings. MR/MR iac's wo/w con* [id number] IMPRESSION: 1. Proximal 7th and 8th cranial nerves are normal in appearance. No evidence o f enhancing IAC or CP angle mass. 2. Normal trigeminal nerve root entry zones. 3. Mild small vessel changes and mild parenchymal volume loss stable compared to previous. 4. No hemosiderin on the susceptibility weighted images. 5. No other acute findings.
[2025-06-17] MEDS: gadobenate dimeglumine 20 mL vial IV (11:47)
== END 2025-06-17 09:33 | disposition home or self-care (01) ==
LOC: RAD 09:38
PROVIDERS: PCP Internal Medicine; Visit Provider Nurse Practitioner Family
DX: H90.3 Sensorineural hearing loss, bilateral (principal); I67.89 Other cerebrovascular disease; G93.89 Other specified disorders of brain; J34.89 Other specified disorders of nose and nasal sinuses
CPT/HCPCS: 70553